=== PATIENT | male | born 1950 | race African-American/Black ===

== ENCOUNTER 2022-12-19 10:00 | Emergency (ER) | payer MEDICARE ==
[2022-12-19] MEDS ORDERED: Dexamethasone 10 MG/ML VIAL ONE (12:46)
[2022-12-19] MEDS ORDERED: diphenhydrAMINE 25 MG CAP ONE (12:46)
== END 2022-12-19 12:42 | disposition home or self-care (01) ==
LOC: CSHERS 10:00
DX: T78.40XA Allergy, unspecified, initial encounter (principal); I10 Essential (primary) hypertension; E78.00 Pure hypercholesterolemia, unspecified; M10.9 Gout, unspecified; Z79.899 Other long term (current) drug therapy; Z79.01 Long term (current) use of anticoagulants
CPT/HCPCS: 99283; J1100

== ENCOUNTER 2023-02-04 15:43 | Emergency (ER) | payer MEDICARE ==
[2023-02-04 17:58] LABS: SARS-CoV-2 NAA Rapid Test DETECTED (NotDetected)
== END 2023-02-04 18:29 | disposition home or self-care (01) ==
LOC: CSHERS 15:43
DX: U07.1 COVID-19 (principal); E11.9 Type 2 diabetes mellitus without complications; E78.00 Pure hypercholesterolemia, unspecified; I10 Essential (primary) hypertension
CPT/HCPCS: 0240U; 71046